=== PATIENT | male | born 1995 | race Caucasian/White ===

== ENCOUNTER 2016-08-28 03:55 | Emergency (ER) | payer OTHER ==
[2016-08-28] MEDS ORDERED: IBUPROFEN 800 MG TABLET ONE (04:22)
== END 2016-08-28 04:25 | disposition home or self-care (01) ==
LOC: ED 03:55
DX: J02.9 Acute pharyngitis, unspecified (principal); I10 Essential (primary) hypertension
CPT/HCPCS: 99282 ×2; A9270